=== PATIENT | female | born 1940 | race Caucasian/White ===

== ENCOUNTER 2016-06-04 05:27 | Day surgery (SDC) | payer MEDICARE, OTHER ==
[~2016-06-04] VITALS: Ht 157.5 cm; Wt 118.8 kg
--- NOTE | ~2016-06-04 | CATH ---
Cardiac Diagnostic Report Demographics Patient Name JUAN HILLIARD Gender Female M Date of 1940 Age 76 year(s) Patient Number [id number] Date of Study 06/04/2016 Visit Number [id number] Room Number Corporate ID Ht 157.48 cm Wt 117.48 kg Accession Number [id number] BSA 2.13 m kg/m Referring Renuka LEWIS Primary Physician Physician Robbie Larsen PAC Performing Renuka LEWIS Secondary Physician Physician Robbie Diagnostic Renuka LEWIS Assisting Physician Physician Robbie Interventional Renuka LEWIS Physician Broadcast Maintenance Technician Physician Robbie Findings and Conclusions Diagnostic Findings and Conclusion 1. Normal coronary arteries Diagnostic Recommendations 1. Primary prevention Procedure Description The patient was brought to the diagnostic cardiac catheterization- laboratory in the fasting, non-sedated state. Informed consent was obtained in the written and verbal form after the risks and benefits were explained. The patient had no further questions and agreed to proceed. The planned puncture-incision site(s) were shaved and prepped with ChloraPrep and draped in the usual sterile manner. Conscious sedation, supplemental oxygen, and pain control medications were delivered by a registered nurse under physician guidance. Surface ECG rhythm, blood pressure measurement, and pulse oximetry were monitored throughout the procedure. Arterial access. The right radial access site was infiltrated with lidocaine. The vessel was entered with the Seldinger technique. A 6F sheath was advanced into the vessel and used for catheter placement. Selective left coronary angiography. A TIG catheter was advanced into the left coronary vessel ostium under Fluoroscopic guidance. Contrast was injected by hand. Images were obtained in multiple projections. Selective right coronary angiography. A PRC catheter was advanced into the right coronary vessel ostium under fluoroscopic guidance. Contrast was injected by hand. Images were obtained in multiple projections. Left heart catheterization. A MPA catheter was advanced across the aortic valve to the left ventricle under fluoroscopic guidance. Resting hemodynamics were obtained. Arterial artery hemostasis was achieved with TR band. The patient was transferred to a regular nursing floor via cart accompanied by a nurse. The patient left the laboratory in stable condition. Procedure Procedure Type Diagnostic procedure:Angiography:, Coronary Angios w/[facility] Indications: Shortness of breath, Abnormal Stress Test, Hypertension, Sleep Apnea and Paroxysmal atrial fibrillation. The procedure was explained in detail to the patient. Risks, complications and alternative treatments were reviewed. Written consent was obtained. Medications Reviewed with Patient prior to Procedure. Complications: No Complication. Procedure Data Procedure Date Date: 06/04/2016Start: 06:51 AM Entry Locations - Percutaneous access was performed through the Right Radial artery (Primary location). A 6 Fr sheath was inserted. Hemostasis was successfully obtained using a TR band. Procedure Medications Order and Administration + + +-------+--------+ !Time !Medication !Dosage !Route ! + + +-------+--------+ !06/04/2016 !Versed !1 mg !I.V. ! !06:55 AM ! ! ! ! + + +-------+--------+ 06/04/2016 !Fentanyl !50 mcg !I.V. ! !06:55 AM ! ! ! ! + + +-------+--------+ 06/04/2016 !Sodium Chloride !10 ml !I.V. ! !06:55 AM ! ! ! ! + + +-------+--------+ !06/04/2016 !Oxygen !2 l/min!NC ! !06:57 AM ! ! ! ! + + +-------+--------+ !06/04/2016 !SF Radial Cocktail: 200mcg Nitro, 2.5 mg ! !I.A. ! !06:59 AM !Verapamil, 5000u Heparin ! ! ! + + +-------+--------+ Devices Used - A6F TIG CATHETERwas used for:Left coronary angiography. - ACATH 6FR MPA-1 CATHETER 100CMwas used for:Right coronary angiography.Unable to cannulate the vessel. - ACATH 6F PRC CATHETER 100CMwas used for:Right coronary angiography. Contrast Material - Isovue 43347 ml Fluoroscopy Time: Diagnostic: 9:30 minutes. Total: 9:30 minutes. Fluoroscopy Dose: Diagnostic: 1381 mGy. Total: 1381 mGy. Estimated Blood Loss: 9 ml. Medical History Allergies - Sulfa. - Sulfa. Risk Factors The patient risk factors include:obesity, treated hypertension, last creatinine: 1.2 mg/dl, creatinine clearance: 76.28 ml/min and currently treated with dialysis. Admission Data Admission Date: 06/04/2016 Admission Time: 05:27 AM Insurance Payors: Medicare. Clinical Evaluation Leading to Procedure Diagnosed on 05/30/2016 12:00 AM. - The patient's CAD presentation was assessed as: Stable angina. Hemodynamics Condition: Rest O2 Consumption: Estimated: 178.48Heart Rate: 50 bpm Pressures (mmHg) +-----+ + !Site !Pressure ! +-----+ + !AO !113/53 (77) ! +-----+ + !LV !123/7 ,16 ! +-----+ + !AO !125/56 (83) ! +-----+ + !LV !128/6 ,14 ! +-----+ + Valve Gradients and Areas + +---------+---------+---------+ +---------+ + !Valve !Peak !Mean !Area !Index !Flow !Source ! + +---------+---------+---------+ +---------+ + !Aortic !2 !0 ! ! ! ! ! + +---------+---------+---------+ +---------+ + !Aortic !2 !0 ! ! ! ! ! + +---------+---------+---------+ +---------+ + Shunts Oxygen Values O2 Consumption 178.48 Discharge Data Discharge Date: 06/04/2016 Hospital Status: Outpatient Signatures
[2016-06-20] MEDS ORDERED: TOPROL XL DPS50 MG PO (16:45)
[2016-06-20] MEDS ORDERED: PRILOSEC DPS20 MG PO (16:45)
[2016-06-20] MEDS ORDERED: TAMBOCOR DPS50 MG PO (16:45)
[2016-06-20] MEDS ORDERED: NORVASC DPS10 MG PO (16:45)
[2016-06-20] MEDS ORDERED: SERTRALINE HCL100 MG PO (16:46)
[2016-06-20] MEDS ORDERED: MAPAP PM (TYLEN1 TAB PO (16:47)
[2016-06-20] MEDS ORDERED: XARELTO20 MG PO (16:47)
[2016-06-20] MEDS ORDERED: MOTRIN-DPS800 MG PO (16:47)
[2016-06-20] MEDS ORDERED: FLONASE 0.05% D16 GM NS (16:48)
[2016-06-20] MEDS ORDERED: LEVAQUIN DPS500 MG PO (16:48)
[2016-06-20] MEDS ORDERED: KENALOG OINT. 015 GM TP (16:49)
== END 2016-06-04 10:25 | disposition home or self-care (01) ==
LOC: SSS 05:27 → CARD 13:30 → EDSTATUS 14:54
DX: I20.8 Other forms of angina pectoris (principal); I48.0 Paroxysmal atrial fibrillation; I10 Essential (primary) hypertension; G47.33 Obstructive sleep apnea (adult) (pediatric); Z88.2 Allergy status to sulfonamides; Z79.899 Other long term (current) drug therapy; Z98.890 Other specified postprocedural states

== ENCOUNTER 2016-06-18 06:02 | Observation (INO) | payer MEDICARE, OTHER ==
[~2016-06-18] VITALS: Ht 157.5 cm; Wt 118.0 kg
--- NOTE | ~2016-06-18 | EEP ---
Initial Pacemaker Generator Implant Report Demographics Patient Name JUAN HILLIARD Gender Female Patient Number [id number] Race Visit Number [id number] Ethnicity Corporate ID Room Number [id number] Accession Number [id number] Height 157.48 cm Date of 1940 Weight 117.93 kg Age 76 year(s) BSA 2.14 m Referring Physician King Ashish Mullins MD BMI 47.55 kg/m Implanting Physician King Ashish Mullins MD Date of Study 06/18/2016 Assisting Physician Performing Physician King Ashish Mullins MD The procedure was explained in detail to the patient. Risks, complications and alternative treatments were reviewed. Written consent was obtained. Medications reviewed with patient prior to procedure. Conclusions Implantable Device Summary Summary 1. Successful dual chamber pacemaker implant Recommendations 1. Chest X-ray post-op and in the AM 2. Device check in the AM 3. Follow up with [facility] provider in 5-7 days Complications No complications. Procedure Procedure Type Pacemaker:Initial Insertion (generator and leads), Dual Lead PM Insert A&V Leads Indications Sick sinus syndrome and paroxysmal a-fib. Procedure Description The patient was brought to the cardiac supervisor cytogenetic laboratory in a fasting state. A baseline ECG was recorded. Surface ECG leads, intracardiac electrograms, blood pressure measurements, and pulse oximety signals were monitored. A grounding pad was placed on the back. A defibrillator was configured to deliver shocks via self-adhesive anterior posterior defibrillator pads. Conscious sedation was administered. The upper chest area was prepped with ChloraPrep. After a three minute dry time the patient was draped in a sterile fashion. 2% Lidocaine with Bupivicaine was used in the infraclavicular area and an incision was made. Blunt dissection down to the area of the Pectoralis Fascia was performed. Subclavian access was obtained and guidewires were placed into the SVC. 2% Lidocaine with Bupivicaine was used inferiorly to the incision. Blunt dissection anterior to the Pectoralis Fascia was used to form the pacemaker pocket. Over one wire, an intravenous sheath and dilator were placed in the superior vena cava under fluoroscopic vision. Through the sheath, the ventricular lead was then placed into the right ventricular apex under fluoroscopic vision and tested. The sheath was removed. The lead was sutured to the Pectoralis fascia using non-absorbable suture. Over the other wire, an intravenous sheath and dilator were placed in to the superior vena cava under fluoroscopic vision. Through the sheath, the atrial lead was then placed in the right atrium under fluoroscopic vision and tested. The sheath was removed. The lead was sutured to the Pectoralis Fascia using non-absorbable sutures. The leads were then connected to the pulse generator and screwed tight. The pocket was irrigated with Ancef. The lead(s) and pulse generator were then placed into the pacemaker pocket. The incision was then closed. It was closed using 2-0 Vicryl for the deep and intermediate layer and 4-0 Vicryl for the subcuticular layer. A sterile dressing was applied. The patient tolerated the procedure well and was returned to the nursing unit in stable condition. Devices and Leads Devices + + + +--------+------+ +--------+ !Identification!Action !Location !Device !Serial!Implant !Comments! ! ! ! !name !# !date ! ! + + + +--------+------+ +--------+ !New implant !Implanted !Left !ARJUNESTER!001237!06/18/2016! ! ! ! !Subclavicular!MRI DR ! ! ! ! ! ! ! !L111 ! ! ! ! + + + +--------+------+ +--------+ Leads + + +--------+ +------+ +---------+ !Identification!Action !Location!Lead name !Serial!Implant !Comments ! ! ! ! ! !# !date ! ! + + +--------+ +------+ +---------+ !New implant !Implanted !RV !PACER LEAD ![id number]!06/18/2016! ! ! ! !septum !INGEVITY ! ! ! ! ! ! ! !MRI 59 CM ! ! ! ! + + +--------+ +------+ +---------+ !New implant !Implanted !RA !PACER LEAD ![id number]!06/18/2016! ! ! ! !septal !FINELINE II! ! ! ! ! ! ! !52CM LEAD ! ! ! ! ! ! ! !(POLY) ! ! ! ! + + +--------+ +------+ +---------+ Leads Measured and Programmed Data +-------+---------+ +---------+ +---------+ + +------ -+ !Lead !Sensing Amplitude !Threshold (V) !Pulse Width (ms) !Impendence!Current! ! !(mV) ! ! !(Ohms) !(mA) ! +-------+---------+ +---------+ +---------+ + +------ -+ ! !Measured !Programmed !Measured !Programmed !Measured !Programmed ! ! ! +-------+---------+ +---------+ +---------+ + +------ -+ !RV !14.7 !2.5 !0.4 !3.5 !0.5 !0.5 !989 !0.5 ! !septum ! ! ! ! ! ! ! ! ! +-------+---------+ +---------+ +---------+ + +------ -+ !RA !2.3 !0.5 !1.1 !3.5 !0.5 !0.5 !367 !3 ! !septal ! ! ! ! ! ! ! ! ! +-------+---------+ +---------+ +---------+ + +------ -+ Device Programming Bradycardia Zone +-------+--------+--------+--------+ + +------+--------+ !Pacing !Mode !Lower !Upper !Paced AV !Sensed AV !PVARP !VRP (ms)! !Mode !Switch !Rate !Rate !Interval !Interval !(ms) ! ! ! ! !(ppm) !(ppm) !(ms) !(ms) ! ! ! +-------+--------+--------+--------+ + +------+--------+ !DDDR !On !60 !130 !210 !180 !320 !250 ! +-------+--------+--------+--------+ + +------+--------+ Medical History Allergies - Sulfa:. - Sulfa:. Admission Data Admission Date: 06/18/2016 Admission Time: 06:02 Insurance Payors:Medicare. Hospital Status:Inpatient. Procedure Data Procedure Date:06/18/2016Start:08:31End:09:23 Fluoroscopy Time: 3:48 minutes.Fluoroscopy Dose: 221 mGy. Estimated blood loss:12 ml. Contrast Material - Isovue 370,10 ml. Procedure Medications Order and Administration + + +---------+--------+ !Time !Medication !Dosage !Route ! + + +---------+--------+ !06/18/2016 08:13 !Ancef !2 g !I.V. ! + + +---------+--------+ !06/18/2016 08:25 !Oxygen !4 l/min !NC ! + + +---------+--------+ !06/18/2016 08:25 !Versed !2 mg !I.V. ! + + +---------+--------+ !06/18/2016 08:25 !Fentanyl !50 mcg !I.V. ! + + +---------+--------+ !06/18/2016 08:37 !Versed !1 mg !I.V. ! + + +---------+--------+ !06/18/2016 08:37 !Fentanyl !25 mcg !I.V. ! + + +---------+--------+ !06/18/2016 08:38 !Versed !1 mg !I.V. ! + + +---------+--------+ !06/18/2016 08:38 !Fentanyl !25 mcg !I.V. ! + + +---------+--------+ !06/18/2016 09:05 !Sodium Chloride !50 ml !I.V. ! + + +---------+--------+ !06/18/2016 09:12 !Fentanyl !50 mcg !I.V. ! + + +---------+--------+ Approach - Incision site: Left infraclavicular.The subclavian vein (stick) was cannulated. Discharge Data Discharge Date: 06/19/2016 Signatures
[2016-06-20] MEDS ORDERED: NORVASC DPS10 MG PO (16:45)
[2016-06-20] MEDS ORDERED: TAMBOCOR DPS50 MG PO (16:45)
[2016-06-20] MEDS ORDERED: PRILOSEC DPS20 MG PO (16:45)
[2016-06-20] MEDS ORDERED: TOPROL XL DPS50 MG PO (16:45)
[2016-06-20] MEDS ORDERED: SERTRALINE HCL100 MG PO (16:46)
[2016-06-20] MEDS ORDERED: XARELTO20 MG PO (16:47)
[2016-06-20] MEDS ORDERED: MAPAP PM (TYLEN1 TAB PO (16:47)
[2016-06-20] MEDS ORDERED: MOTRIN-DPS800 MG PO (16:47)
[2016-06-20] MEDS ORDERED: FLONASE 0.05% D16 GM NS (16:48)
[2016-06-20] MEDS ORDERED: LEVAQUIN DPS500 MG PO (16:48)
[2016-06-20] MEDS ORDERED: KENALOG OINT. 015 GM TP (16:49)
== END 2016-06-19 12:05 | disposition home or self-care (01) ==
LOC: WOR 06:02 → 4PCU 09:51 → SSS 12:02 → EDSTATUS 12:03 → SSS 16:33 → 4PCU 06-19 12:05
PROVIDERS: ADMIT Internal Medicine
PROC: 0JH606Z Insertion of Pacemaker, Dual Chamber into Chest Subcutaneous Tissue and Fascia, Open Approach (ICD-10-PCS; principal; 2016-06-18)
PROC: 02HK3JZ Insertion of Pacemaker Lead into Right Ventricle, Percutaneous Approach (ICD-10-PCS; principal; 2016-06-18)
PROC: 02H63JZ Insertion of Pacemaker Lead into Right Atrium, Percutaneous Approach (ICD-10-PCS; principal; 2016-06-18)
DX: I49.5 Sick sinus syndrome (principal); I48.0 Paroxysmal atrial fibrillation; I10 Essential (primary) hypertension; G47.33 Obstructive sleep apnea (adult) (pediatric); Z95.0 Presence of cardiac pacemaker; Z88.2 Allergy status to sulfonamides; Z79.899 Other long term (current) drug therapy; Z88.8 Allergy status to other drugs, medicaments and biological substances